=== PATIENT | female | born 1950 ===

== ENCOUNTER 2018-09-28 08:04 | Outpatient (CLI) | payer MEDICARE ==
--- NOTE | 2018-09-28 10:06 | BD ---
BONE DENSITOMETRY: Indication: 68-year-old female for post-menopausal osteoporosis screening. Lumbar Spine: BMD (g/cm2) L1 0.641 T-Score: -3.2 L2 0.749 T-Score: -2.5 L3 0.754 T-Score: -3.0 L4 0.775 T-Score: -2.6 L1-L4 0.735 T-Score: -2.8 Femoral Neck: 0.632 T-Score: -2.0 Total Femur: 0.839 T-Score: -0.9 Impression: 1. Bone mineral density of the lumbar spine indicates osteoporosis. 2. Bone mineral density of the femoral neck indicates osteopenia. POS: PIERO
== END 2018-09-28 08:05 | disposition home or self-care (01) ==
LOC: BICMAMMO 08:04
PROVIDERS: ATTEND Family Medicine
DX: Z12.31 Encounter for screening mammogram for malignant neoplasm of breast (principal); Z78.0 Asymptomatic menopausal state; Z00.00 Encounter for general adult medical examination without abnormal findings; Z80.3 Family history of malignant neoplasm of breast; M81.0 Age-related osteoporosis without current pathological fracture; M85.859 Other specified disorders of bone density and structure, unspecified thigh
CPT/HCPCS: 77063; 77067; 77080